=== PATIENT | male | born 1940 | race Hispanic/Latino ===

== ENCOUNTER 2017-10-15 15:46 | Emergency (ER) | payer MEDICARE ==
[2017-10-15 16:43] LABS: Basophils # (Auto) 0.1 K/mm3 (0.0-0.1); Basophils % (Auto) 0.6 % (0.0-1.8); Eosinophils # (Auto) 0.3 K/mm3 (0.0-0.4); Eosinophils % (Auto) 3.3 % (0.0-4.3); Hematocrit 44.6 % (35.5-45.6); Hemoglobin 15.2 gm/dl (11.8-15.2); Lymphocytes # (Auto) 1.2 K/mm3 (1.2-5.4); Lymphocytes % (Auto) 12.5 % (13.4-35.0); Mean Corpuscular HGB Conc 34 % (32-34); Mean Corpuscular Hemoglobin 32 pg (28-32); Mean Corpuscular Volume 95 fl (84-94); Monocytes # (Auto) 0.6 K/mm3 (0.0-0.8); Monocytes % (Auto) 6.4 % (0.0-7.3); Platelet Count 215 K/mm3 (140-440); Red Cell Distribution Width 14.5 % (13.2-15.2)
[2017-10-15 17:01] LABS: Alanine Aminotransferase 18 units/L (7-56); BUN/Creatinine Ratio 17; Blood Urea Nitrogen 17 mg/dL (9-20); Calcium 10.1 mg/dL (8.4-10.2); Hemolysis Index 75; Lipase 52 units/L (13-60)
[2017-10-15 17:04] LABS: INR 0.88 (0.87-1.13)
[2017-10-15] MEDS ORDERED: ZOFRAN IV ONE (17:04)
[2017-10-15] MEDS ORDERED: MORPHINE IV ONE ×2 (17:04→18:12)
[2017-10-15 17:05] LABS: Partial Thromboplastin Time 34.6 Sec. (24.2-36.6)
--- NOTE | 2017-10-15 17:08 | Emergency Department Report ---
ED General Adult HPI - General Chief complaint: Abdominal Pain Stated complaint: ABD PAIN Time Seen by Provider: 10/15/17 16:41 Source: patient Mode of arrival: Ambulatory Limitations: No Limitations - History of Present Illness Initial comments: Patient presents to emergency department with complaint of right upper quadrant epigastric abdominal pain started this morning. Patient describes the pain as sharp and denies anything making it better or worse. There is no radiation of the abdominal pain. Patient denies vomiting but does endorse nausea. No other associated symptoms -: Sudden Location: abdomen Radiation: non-radiation Severity scale (0 -10): 9 Quality: sharp, constant Consistency: constant Improves with: none Worsens with: none Associated Symptoms: nausea/vomiting (nausea only). denies: chest pain Treatments Prior to Arrival: none - Related Data Home Medications Medication Instructions Recorded Confirmed Last Taken Amlodipine Besylate [Amlodipine 1 tab PO DAILY 01/16/15 01/16/15 01/15/15 Besylate] Aspirin EC [Halfprin EC] 81 mg PO QDAY 01/16/15 01/16/15 01/16/15 Atorvastatin [Lipitor] 40 mg PO QHS 01/16/15 01/16/15 01/15/15 Finasteride [Proscar] 5 mg PO QDAY 01/16/15 01/16/15 01/15/15 Losartan [Cozaar] 100 mg PO QDAY 01/16/15 01/16/15 01/16/15 Metformin HCl [metFORMIN ER] 500 mg PO DAILY 01/16/15 01/16/15 01/16/15 Propranolol HCl [Propranolol HCl 1 tab PO DAILY 01/16/15 01/16/15 01/16/15 ER] Previous Rx's Medication Instructions Recorded Last Taken Type Ciprofloxacin HCl [Cipro] 500 mg PO DAILY #3 tablet 01/18/15 Unknown Rx HYDROcodone/ACETAMINOPHEN [[place] 1 each PO Q6HR PRN #20 tablet 10/15/17 Unknown Rx 5-325 Tablet] Ondansetron [Zofran Odt] 4 mg PO Q4HR PRN #20 tab.rapdis 10/15/17 Unknown Rx Allergies Allergy/AdvReac Type Severity Reaction Status Date / Time No Known Allergies Allergy Unverified 12/05/13 16:59 ED Review of Systems ROS: Stated complaint: ABD PAIN Other details as noted in HPI Comment: All other systems reviewed and negative Constitutional: denies: chills, fever Eyes: denies: eye pain, eye discharge, vision change ENT: denies: ear pain, throat pain Respiratory: denies: cough, shortness of breath, wheezing Cardiovascular: denies: chest pain, palpitations Endocrine: no symptoms reported Gastrointestinal: abdominal pain. denies: nausea, diarrhea Genitourinary: denies: urgency, dysuria Musculoskeletal: denies: back pain, joint swelling, arthralgia Skin: denies: rash, lesions Neurological: denies: headache, weakness, paresthesias Psychiatric: denies: anxiety, depression Hematological/Lymphatic: denies: easy bleeding, easy bruising ED Past Medical Hx - Past Medical History Hx Hypertension: Yes Hx Diabetes: Yes Hx Arthritis: Yes Additional medical history: BPH - Surgical History Additional Surgical History: hernia repair (umbilical/groin), nasal surgery. finger reattachment, Left shoulder ligament repair. bilateral knee replacements - Social History Smoking Status: Never Smoker Substance Use Type: None - Medications Home Medications: Home Medications Medication Instructions Recorded Confirmed Last Taken Type Amlodipine Besylate [Amlodipine 1 tab PO DAILY 01/16/15 01/16/15 01/15/15 History Besylate] Aspirin EC [Halfprin EC] 81 mg PO QDAY 01/16/15 01/16/15 01/16/15 History Atorvastatin [Lipitor] 40 mg PO QHS 01/16/15 01/16/15 01/15/15 History Finasteride [Proscar] 5 mg PO QDAY 01/16/15 01/16/15 01/15/15 History Losartan [Cozaar] 100 mg PO QDAY 01/16/15 01/16/15 01/16/15 History Metformin HCl [metFORMIN ER] 500 mg PO DAILY 01/16/15 01/16/15 01/16/15 History Propranolol HCl [Propranolol HCl 1 tab PO DAILY 01/16/15 01/16/15 01/16/15 History ER] Ciprofloxacin HCl [Cipro] 500 mg PO DAILY #3 tablet 01/18/15 Unknown Rx HYDROcodone/ACETAMINOPHEN [[place] 1 each PO Q6HR PRN #20 tablet 10/15/17 Unknown Rx 5-325 Tablet] Ondansetron [Zofran Odt] 4 mg PO Q4HR PRN #20 tab.rapdis 10/15/17 Unknown Rx ED Physical Exam - General Limitations: No Limitations General appearance: alert, in no apparent distress - Head Head exam: Present: atraumatic, normocephalic - Eye Eye exam: Present: normal appearance - ENT ENT exam: Present: mucous membranes moist - Neck Neck exam: Present: normal inspection - Respiratory Respiratory exam: Present: normal lung sounds bilaterally. Absent: respiratory distress - Cardiovascular Cardiovascular Exam: Present: regular rate, normal rhythm. Absent: systolic murmur, diastolic murmur, rubs, gallop - GI/Abdominal GI/Abdominal exam: Present: soft, tenderness (TTP RUQ and epigastric region), normal bowel sounds. Absent: distended - Rectal Rectal exam: Present: deferred - Extremities Exam Extremities exam: Present: normal inspection - Back Exam Back exam: Present: normal inspection - Neurological Exam Neurological exam: Present: alert, oriented X3 - Psychiatric Psychiatric exam: Present: normal affect, normal mood - Skin Skin exam: Present: warm, dry, intact, normal color. Absent: rash ED Course Vital Signs 10/15/17 10/15/17 10/15/17 16:02 16:19 16:20 Temperature 97.5 F L Pulse Rate 68 71 69 Respiratory 24 14 14 Rate Blood Pressure 171/96 162/87 O2 Sat by Pulse 99 97 99 Oximetry 10/15/17 10/15/17 10/15/17 16:22 16:30 16:32 Temperature Pulse Rate 68 68 Respiratory 16 17 16 Rate Blood Pressure 162/87 167/93 O2 Sat by Pulse 99 99 99 Oximetry 10/15/17 10/15/17 10/15/17 17:00 17:30 18:00 Temperature Pulse Rate 65 54 L 75 Respiratory 12 14 14 Rate Blood Pressure 171/95 144/73 136/85 O2 Sat by Pulse 100 93 94 Oximetry 10/15/17 10/15/17 10/15/17 18:34 19:00 19:08 Temperature Pulse Rate 68 81 Respiratory 15 16 16 Rate Blood Pressure 136/85 O2 Sat by Pulse 100 93 Oximetry 10/15/17 19:30 Temperature Pulse Rate 85 Respiratory 17 Rate Blood Pressure 136/85 O2 Sat by Pulse 96 Oximetry ED Medical Decision Making - Lab Data Result diagrams: 10/15/17 16:14 10/15/17 16:14 Lab Results 10/15/17 10/15/17 10/15/17 Range/Units 16:14 16:14 16:14 WBC 9.3 (4.5-11.0) K/mm3 RBC 4.70 (3.65-5.03) M/mm3 Hgb 15.2 (11.8-15.2) gm/dl Hct 44.6 (35.5-45.6) % MCV 95 H (84-94) fl MCH 32 (28-32) pg MCHC 34 (32-34) % RDW 14.5 (13.2-15.2) % Plt Count 215 (140-440) K/mm3 Lymph % (Auto) 12.5 L (13.4-35.0) % [place] % (Auto) 6.4 (0.0-7.3) % Eos % (Auto) 3.3 (0.0-4.3) % Baso % (Auto) 0.6 (0.0-1.8) % Lymph # 1.2 (1.2-5.4) K/mm3 [place] # 0.6 (0.0-0.8) K/mm3 Eos # 0.3 (0.0-0.4) K/mm3 Baso # 0.1 (0.0-0.1) K/mm3 Seg Neutrophils % 77.2 H (40.0-70.0) % Seg Neutrophils # 7.2 (1.8-7.7) K/mm3 PT 12.4 (12.2-14.9) Sec. INR 0.88 (0.87-1.13) APTT 34.6 (24.2-36.6) Sec. Sodium 138 (137-145) mmol/L Potassium 4.3 (3.6-5.0) mmol/L Chloride 101.4 (98-107) mmol/L Carbon Dioxide 19 L (22-30) mmol/L Anion Gap 22 mmol/L BUN 17 (9-20) mg/dL Creatinine 1.0 (0.8-1.5) mg/dL Estimated GFR > 60 ml/min BUN/Creatinine Ratio 17 % Glucose 132 H (75-100) mg/dL Calcium 10.1 (8.4-10.2) mg/dL Total Bilirubin 1.00 (0.1-1.2) mg/dL AST 24 (5-40) units/L ALT 18 (7-56) units/L Alkaline Phosphatase 121 (35-129) units/L Troponin T (0.00-0.029) ng/mL NT-Pro-B Natriuret Pep 29.32 (0-900) pg/mL Total Protein 6.3 (6.3-8.2) g/dL Albumin 4.0 (3.9-5) g/dL Albumin/Globulin Ratio 1.7 % Lipase 52 (13-60) units/L Urine Color (Yellow) Urine Turbidity (Clear) Urine pH (5.0-7.0) Ur Specific [place] (1.003-1.030) Urine Protein (Negative) mg/dL Urine Glucose (UA) (Negative) mg/dL Urine Ketones (Negative) mg/dL Urine Blood (Negative) Urine Nitrite (Negative) Ur Reducing Substances Urine Bilirubin (Negative) Urine Ictotest Urine Urobilinogen (<2.0) mg/dL Ur Leukocyte Esterase (Negative) Urine WBC (Auto) (0.0-6.0) /HPF Urine RBC (Auto) (0.0-6.0) /HPF Urine Bacteria (Auto) (Negative) /HPF Hyaline Casts /LPF Urine Mucus /HPF 10/15/17 10/15/17 10/15/17 Range/Units 16:20 18:11 18:43 WBC (4.5-11.0) K/mm3 RBC (3.65-5.03) M/mm3 Hgb (11.8-15.2) gm/dl Hct (35.5-45.6) % MCV (84-94) fl MCH (28-32) pg MCHC (32-34) % RDW (13.2-15.2) % Plt Count (140-440) K/mm3 Lymph % (Auto) (13.4-35.0) % [place] % (Auto) (0.0-7.3) % Eos % (Auto) (0.0-4.3) % Baso % (Auto) (0.0-1.8) % Lymph # (1.2-5.4) K/mm3 [place] # (0.0-0.8) K/mm3 Eos # (0.0-0.4) K/mm3 Baso # (0.0-0.1) K/mm3 Seg Neutrophils % (40.0-70.0) % Seg Neutrophils # (1.8-7.7) K/mm3 PT (12.2-14.9) Sec. INR (0.87-1.13) APTT (24.2-36.6) Sec. Sodium (137-145) mmol/L Potassium (3.6-5.0) mmol/L Chloride (98-107) mmol/L Carbon Dioxide (22-30) mmol/L Anion Gap mmol/L BUN (9-20) mg/dL Creatinine (0.8-1.5) mg/dL Estimated GFR ml/min BUN/Creatinine Ratio % Glucose (75-100) mg/dL Calcium (8.4-10.2) mg/dL Total Bilirubin (0.1-1.2) mg/dL AST (5-40) units/L ALT (7-56) units/L Alkaline Phosphatase (35-129) units/L Troponin T < 0.010 < 0.010 (0.00-0.029) ng/mL NT-Pro-B Natriuret Pep (0-900) pg/mL Total Protein (6.3-8.2) g/dL Albumin (3.9-5) g/dL Albumin/Globulin Ratio % Lipase (13-60) units/L Urine Color Yellow (Yellow) Urine Turbidity Clear (Clear) Urine pH 6.0 (5.0-7.0) Ur Specific [place] 1.020 (1.003-1.030) Urine Protein <15 mg/dl (Negative) mg/dL Urine Glucose (UA) Neg (Negative) mg/dL Urine Ketones Neg (Negative) mg/dL Urine Blood Neg (Negative) Urine Nitrite Neg (Negative) Ur Reducing Substances Not Reportable Urine Bilirubin Neg (Negative) Urine Ictotest Not Reportable Urine Urobilinogen 4.0 (<2.0) mg/dL Ur Leukocyte Esterase Neg (Negative) Urine WBC (Auto) 1.0 (0.0-6.0) /HPF Urine RBC (Auto) 1.0 (0.0-6.0) /HPF Urine Bacteria (Auto) 1+ (Negative) /HPF Hyaline Casts 1 /LPF Urine Mucus Few /HPF - EKG Data -: EKG Interpreted by Id EKG shows normal: sinus rhythm Rate: normal (67) - EKG Data When compared to previous EKG there are: no significant change, other (compared to EKG from 12/05/2013) Interpretation: no acute changes, nonspecific ST-T wave lee - Medical Decision Making Patient had relief of pain with morphine. Discussed results with the patient and his Critical care attestation.: If time is entered above; I have spent that time in minutes in the direct care of this critically ill patient, excluding procedure time. ED Disposition Clinical Impression: Gallbladder colic, Gallbladder disease, Right upper quadrant abdominal pain Disposition: TO HOME OR SELFCARE Is pt being admited?: No Does the pt Need Aspirin: No Condition: Stable Prescriptions: HYDROcodone/ACETAMINOPHEN [[place] 5-325 Tablet] 1 each PO Q6HR PRN #20 tablet PRN Reason: Pain Ondansetron [Zofran Odt] 4 mg PO Q4HR PRN #20 tab.rapdis PRN Reason: Nausea Referrals: PRIMARY MD RICARDA [Primary Care Provider] - 3-5 Days PATSY JOHNSON MD [Referring] - 3-5 Days Time of Disposition: 21:06
[2017-10-15 18:14] VITALS: BP 136/85
[2017-10-15 18:50] LABS: Bacteria,Urine 1+ /HPF (Negative); Bilirubin,Urine NEG (Negative); Blood,Urine NEG (Negative); Color,Urine Yellow (Yellow); Hyaline Casts,Urine 1 /LPF; Mucus,Urine FEW /HPF; Protein,Urine <15 mg/dL mg/dL (Negative)
--- NOTE | 2017-10-15 20:39 | Ultrasound Report ---
FINAL REPORT PROCEDURE: US ABDOMEN LIMITED TECHNIQUE: Real-time sonography in multiple planes of the gallbladder fossa and CBD with imaging of the adjacent liver, pancreas, and right kidney was performed with image documentation. CPT 96832 HISTORY: ruq and epi pain COMPARISON: No prior studies are available for comparison. FINDINGS: Liver: Normal size and echotexture with no evidence of cystic or solid mass lesion. Gallbladder: There are no gallstones. There is gallbladder sludge. The wall is thickened at 3.5 millimeters.. Intrahepatic bile ducts: Normal . Extrahepatic bile ducts: Normal . Pancreas: Pancreas is obscured by bowel gas.. Right kidney: Normal echotexture. No focal renal mass, calculus, or hydronephrosis. Other: No free fluid. IMPRESSION: There is gallbladder sludge. There is borderline gallbladder wall thickening. No stones are seen. There is no biliary ductal dilatation.
== END 2017-10-15 21:55 | disposition home or self-care (01) ==
LOC: ED 15:46
DX: K80.20 Calculus of gallbladder without cholecystitis without obstruction (principal); I10 Essential (primary) hypertension; E11.9 Type 2 diabetes mellitus without complications; M19.90 Unspecified osteoarthritis, unspecified site; Z96.653 Presence of artificial knee joint, bilateral
CPT/HCPCS: 36415; 76705; 80053; 81001; 83690; 83880; 84484; 85025; 85610; 85730; 93005; 93010; 96374; 96375; 96376; 99284; J2270; J2405

== ENCOUNTER 2018-09-25 23:07 | Emergency (ER) | payer MEDICARE ==
--- NOTE | 2018-09-25 23:58 | XRay Report ---
FINAL REPORT EXAM: XR CHEST ROUTINE 2V HISTORY: Shortness of breath COMPARISON: None available. FINDINGS:: Frontal and lateral views of the chest obtained. Cardiac silhouette is within normal limi ts. No focal consolidation or effusion. No pneumothorax. Visualized bony thorax is grossly intact. IMPRESSION:: No acute findings.
[2018-09-26] LABS: Basophils # (Auto) 0.1 K/mm3 (0.0-0.1); Eosinophils # (Auto) 0.4 K/mm3 (0.0-0.4); Eosinophils % (Auto) 4.6 % (0.0-4.3); Hematocrit 42.1 % (35.5-45.6); Lymphocytes # (Auto) 1.5 K/mm3 (1.2-5.4); Lymphocytes % (Auto) 16.1 % (13.4-35.0); Mean Corpuscular HGB Conc 33 % (32-34); Mean Corpuscular Volume 98 fl (84-94); Monocytes # (Auto) 0.7 K/mm3 (0.0-0.8); Monocytes % (Auto) 7.6 % (0.0-7.3); Platelet Count 209 K/mm3 (140-440); Red Blood Count 4.29 M/mm3 (3.65-5.03); Red Cell Distribution Width 14.1 % (13.2-15.2)
[2018-09-26 00:22] LABS: BUN/Creatinine Ratio 16; Blood Urea Nitrogen 18 mg/dL (9-20); Calcium 9.6 mg/dL (8.4-10.2); Hemolysis Index 32
[2018-09-26] MEDS ORDERED: SOLU-Medrol IM ONE (03:51)
[2018-09-26] MEDS ORDERED: ATROVENT IH ONE (03:51)
[2018-09-26] MEDS ORDERED: PROVENTIL IH ONE (03:51)
[2018-09-26] MEDS ORDERED: TESSALON PERLES PO ONE (03:51)
--- NOTE | 2018-09-26 03:57 | Emergency Department Report ---
- General Chief Complaint: Chest Pain Stated Complaint: COUGH/RUTHY Time Seen by Provider: 09/26/18 03:37 Source: patient Mode of arrival: Ambulatory Limitations: No Limitations - History of Present Illness Initial Comments: 78-year-old male male with a past medical history arthritis, CHF, diabetes, hypertension, and BPH presents to the hospital complaining of cough 2 days. Patient having a frequent cough that is primarily dry and occasionally productive of clear sputum. Patient has. He has frequent coughing spells which make it difficult for him to breathe. He denies a history of tobacco use, asthma, COPD, sick contacts, or fever. He complains of some mild chills today and intermittent anterior chest pain associated with coughing episodes. PMD DR Russell - Related Data Home Medications Medication Instructions Recorded Confirmed Last Taken Amlodipine Besylate 1 tab PO DAILY 01/16/15 01/16/15 01/15/15 Aspirin EC [Halfprin EC] 81 mg PO QDAY 01/16/15 01/16/15 01/16/15 Atorvastatin [Lipitor] 40 mg PO QHS 01/16/15 01/16/15 01/15/15 Finasteride [Proscar] 5 mg PO QDAY 01/16/15 01/16/15 01/15/15 Losartan [Cozaar] 100 mg PO QDAY 01/16/15 01/16/15 01/16/15 Metformin HCl [metFORMIN ER] 500 mg PO DAILY 01/16/15 01/16/15 01/16/15 Propranolol HCl [Propranolol HCl 1 tab PO DAILY 01/16/15 01/16/15 01/16/15 ER] Previous Rx's Medication Instructions Recorded Last Taken Type Ciprofloxacin HCl [Cipro] 500 mg PO DAILY #3 tablet 01/18/15 Unknown Rx HYDROcodone/ACETAMINOPHEN [[place] 1 each PO Q6HR PRN #20 tablet 10/15/17 Unknown Rx 5-325 Tablet] Ondansetron [Zofran Odt] 4 mg PO Q4HR PRN #20 tab.rapdis 10/15/17 Unknown Rx Albuterol Sulfate [Ventolin HFA] 2 puff IH Q4H PRN #1 hfa.aer.ad 09/26/18 Unknown Rx Azithromycin [Zithromax Z-BENJAMIN] 1 dose PO DAILY 5 Days tab 09/26/18 Unknown Rx Benzonatate [Tessalon Perles] 100 mg PO Q8HR PRN #20 capsule 09/26/18 Unknown Rx Prednisone [predniSONE 10 mg 10 mg PO .TAPER #1 tab.ds.pk 09/26/18 Unknown Rx (6-Day Pack, 21 Tabs)] Allergies Allergy/AdvReac Type Severity Reaction Status Date / Time No Known Allergies Allergy Unverified 12/05/13 16:59 ED Review of Systems ROS: Stated complaint: COUGH/RUTHY Other details as noted in HPI Comment: All other systems reviewed and negative ED Past Medical Hx - Past Medical History Previous Medical History?: Yes Hx Hypertension: Yes Hx Congestive Heart Failure: Yes Hx Diabetes: Yes Hx Arthritis: Yes Additional medical history: BPH - Surgical History Past Surgical History?: Yes Additional Surgical History: hernia repair (umbilical/groin), nasal surgery. finger reattachment, Left shoulder ligament repair. bilateral knee replacements - Social History Smoking Status: Never Smoker Substance Use Type: None - Medications Home Medications: Home Medications Medication Instructions Recorded Confirmed Last Taken Type Amlodipine Besylate 1 tab PO DAILY 01/16/15 01/16/15 01/15/15 History Aspirin EC [Halfprin EC] 81 mg PO QDAY 01/16/15 01/16/15 01/16/15 History Atorvastatin [Lipitor] 40 mg PO QHS 01/16/15 01/16/15 01/15/15 History Finasteride [Proscar] 5 mg PO QDAY 01/16/15 01/16/15 01/15/15 History Losartan [Cozaar] 100 mg PO QDAY 01/16/15 01/16/15 01/16/15 History Metformin HCl [metFORMIN ER] 500 mg PO DAILY 01/16/15 01/16/15 01/16/15 History Propranolol HCl [Propranolol HCl 1 tab PO DAILY 01/16/15 01/16/15 01/16/15 History ER] Ciprofloxacin HCl [Cipro] 500 mg PO DAILY #3 tablet 01/18/15 Unknown Rx HYDROcodone/ACETAMINOPHEN [[place] 1 each PO Q6HR PRN #20 tablet 10/15/17 Unknown Rx 5-325 Tablet] Ondansetron [Zofran Odt] 4 mg PO Q4HR PRN #20 tab.rapdis 10/15/17 Unknown Rx Albuterol Sulfate [Ventolin HFA] 2 puff IH Q4H PRN #1 hfa.aer.ad 09/26/18 Unknown Rx Azithromycin [Zithromax Z-BENJAMIN] 1 dose PO DAILY 5 Days tab 09/26/18 Unknown Rx Benzonatate [Tessalon Perles] 100 mg PO Q8HR PRN #20 capsule 09/26/18 Unknown Rx Prednisone [predniSONE 10 mg 10 mg PO .TAPER #1 tab.ds.pk 09/26/18 Unknown Rx (6-Day Pack, 21 Tabs)] ED Physical Exam - General Limitations: No Limitations - Other Other exam information: General: No limitations, patient is alert in no acute distress Head exam: Atraumatic, normocephalic Eyes exam: Normal appearance ENT: Moist mucous membrane Neck exam: Normal inspection, full range of motion, no meningismus nontender Respiratory exam: Patient cough worse with deep inspiration. End expiratory wheezing auscultated bilaterally. No crackles. Mild anterior bilateral chest wall tenderness to palpation no tachypnea or accessory muscle use Cardiovascular: Normal rate and rhythm, normal heart sounds Abdomen: Soft, nondistended, and nontender, with normal bowel sounds, no rebound, or guarding Extremity: Full range of motion normal inspection no deformity, no calf tenderness or edema Back: Normal Inspection, full range of motion, no tenderness Neurologic: Alert, oriented x3, cranial nerves intact, no motor or sensory deficit Psychiatric: normal affect, normal mood Skin: Warm, dry, intact ED Course Vital Signs 09/25/18 09/26/18 09/26/18 23:11 01:29 02:43 Temperature 98.7 F Pulse Rate 90 Pulse Rate [ Anterior Left Upper Lobe] Pulse Rate [ Anterior Right Upper Lobe] Respiratory 18 16 Rate Respiratory Rate [Anterior Left Upper Lobe ] Respiratory Rate [Anterior Right Upper Lobe] Blood Pressure 130/78 O2 Sat by Pulse 95 98 Oximetry 09/26/18 09/26/18 09/26/18 02:45 03:00 03:16 Temperature Pulse Rate Pulse Rate [ Anterior Left Upper Lobe] Pulse Rate [ Anterior Right Upper Lobe] Respiratory Rate Respiratory Rate [Anterior Left Upper Lobe ] Respiratory Rate [Anterior Right Upper Lobe] Blood Pressure 152/80 138/78 152/80 O2 Sat by Pulse 98 95 97 Oximetry 09/26/18 09/26/18 04:16 04:18 Temperature Pulse Rate Pulse Rate [ 85 Anterior Left Upper Lobe] Pulse Rate [ 85 Anterior Right Upper Lobe] Respiratory Rate Respiratory 18 Rate [Anterior Left Upper Lobe ] Respiratory 18 Rate [Anterior Right Upper Lobe] Blood Pressure 154/90 O2 Sat by Pulse 96 Oximetry ED Medical Decision Making - Lab Data Result diagrams: 09/25/18 23:34 09/25/18 23:34 Lab Results 09/25/18 09/25/18 09/26/18 Range/Units 23:34 23:34 02:50 WBC 9.2 (4.5-11.0) K/mm3 RBC 4.29 (3.65-5.03) M/mm3 Hgb 14.0 (11.8-15.2) gm/dl Hct 42.1 (35.5-45.6) % MCV 98 H (84-94) fl MCH 33 H (28-32) pg MCHC 33 (32-34) % RDW 14.1 (13.2-15.2) % Plt Count 209 (140-440) K/mm3 Lymph % (Auto) 16.1 (13.4-35.0) % [place] % (Auto) 7.6 H (0.0-7.3) % Eos % (Auto) 4.6 H (0.0-4.3) % Baso % (Auto) 1.0 (0.0-1.8) % Lymph # 1.5 (1.2-5.4) K/mm3 [place] # 0.7 (0.0-0.8) K/mm3 Eos # 0.4 (0.0-0.4) K/mm3 Baso # 0.1 (0.0-0.1) K/mm3 Seg Neutrophils % 70.7 H (40.0-70.0) % Seg Neutrophils # 6.5 (1.8-7.7) K/mm3 Sodium 140 (137-145) mmol/L Potassium 3.9 (3.6-5.0) mmol/L Chloride 105.9 (98-107) mmol/L Carbon Dioxide 22 (22-30) mmol/L Anion Gap 16 mmol/L BUN 18 (9-20) mg/dL Creatinine 1.1 (0.8-1.5) mg/dL Estimated GFR > 60 ml/min BUN/Creatinine Ratio 16 % Glucose 121 H (75-100) mg/dL Calcium 9.6 (8.4-10.2) mg/dL Troponin T < 0.010 < 0.010 (0.00-0.029) ng/mL - EKG Data -: EKG Interpreted by Me EKG shows normal: sinus rhythm, axis (qrs 46), QRS complexes (qrsd 144), ST-T waves (rbb, no stemi) Rate: normal (85) - EKG Data When compared to previous EKG there are: no significant change - Radiology Data Radiology results: report reviewed (cxr: naf) - Medical Decision Making Patient feels better with ED treatment. Cough persists when talking. Wheezing improved. Patient be discharged with meds - Differential Diagnosis costochondritis, pneumonia, bronchitis, AR Critical Care Time: No Critical care attestation.: If time is entered above; I have spent that time in minutes in the direct care of this critically ill patient, excluding procedure time. ED Disposition Clinical Impression: Acute bronchitis Disposition: [id number] TO HOME OR SELFCARE Is pt being admited?: No Does the pt Need Aspirin: No Condition: Stable Instructions: Acute Bronchitis (ED) Additional Instructions: Take the medication as prescribed. Follow up with your doctor. Return if sympt oms worsen as indicated by your discharge instructions Prescriptions: Albuterol Sulfate [Ventolin HFA] 2 puff IH Q4H PRN #1 hfa.aer.ad PRN Reason: Shortness Of Breath Azithromycin [Zithromax Z-BENJAMIN] 1 dose PO DAILY 5 Days tab Benzonatate [Tessalon Perles] 100 mg PO Q8HR PRN #20 capsule PRN Reason: Cough Prednisone [predniSONE 10 mg (6-Day Pack, 21 Tabs)] 10 mg PO .TAPER #1 tab.ds.pk Referrals: Hernandez MERINO MD [Primary Care Provider] - 3-5 Days Time of Disposition: 05:37
[2018-09-26 07:16] VITALS: BP 122/74
== END 2018-09-26 05:30 | disposition home or self-care (01) ==
LOC: ED 23:07
DX: J20.9 Acute bronchitis, unspecified (principal); I11.0 Hypertensive heart disease with heart failure; E11.9 Type 2 diabetes mellitus without complications; M19.90 Unspecified osteoarthritis, unspecified site; Z96.653 Presence of artificial knee joint, bilateral; Z79.82 Long term (current) use of aspirin
CPT/HCPCS: 36415; 71046; 80048; 84484; 85025; 93005; 93010; 94640; 96372; 99285; J2930